=== PATIENT | female | born 2000 | race Caucasian/White ===

== ENCOUNTER 2018-02-21 20:11 | Emergency (ER) | payer OTHER ==
[2018-02-21 21:39] LABS: INFLUENZA A AMPLIFICATION POSITIVE (NEGATIVE); INFLUENZA B AMPLIFICATION NEGATIVE (NEGATIVE)
[2018-02-21] MEDS: OSELTAMIVIR PHOSPHATE 75 MG CAP (TAMIFLU) PO (21:59)
[2018-02-21] MEDS: ONDANSETRON 4 MG ORAL DISINTEGRATING TAB (Q0162 PER 1MG) PO (22:07)
== END 2018-02-21 22:17 | disposition home or self-care (01) ==
LOC: M ED 20:11
DX: J09.X2 Influenza due to identified novel influenza A virus with other respiratory manifestations (principal); F17.210 Nicotine dependence, cigarettes, uncomplicated
CPT/HCPCS: Q0162

== ENCOUNTER 2018-04-01 12:05 | Emergency (ER) | payer OTHER ==
[~2018-04-01] VITALS: Ht 160 cm; Wt 50.0 kg
[~2018-04-01 12:05] MED LIST: ACET1TAB55 PO; IBUP80TA PO; OSEL75CA PO
[2018-04-01] MEDS ORDERED: ONDANSETRON 4MG/2ML VIAL (J2405) IV ONE (13:45)
[2018-04-01] MEDS ORDERED: NS 1,000 ML IV ONE (13:45)
[2018-04-01] MEDS ORDERED: MECLIZINE 25 MG TABLET PO ONE (13:45)
[2018-04-01 14:32] LABS: BASO # 0.1 10^3/uL (0.0-0.2); BASO % 0.5 % (0.0-1.0); EOS # 0.1 10^3/uL (0.0-0.50); EOS % 1.3 % (0.0-3.0); HEMATOCRIT 43.5 % (36.0-47.0); HEMOGLOBIN 14.9 g/dl (12.0-15.5); LYMPH # 2.5 10^3/uL (1.5-6.5); LYMPH % 23.6 % (24.0-44.0); MEAN CORPUSCULAR HGB CONC 34.3 g/dl (32.0-36.5); MEAN CORPUSCULAR VOLUME 90.6 fl (80.0-96.0); MONO # 0.7 10^3/uL (0.0-0.8); MONO % 6.3 % (0.0-5.0); NEUTROPHILS # 7.1 10^3/uL (1.8-7.7); NEUTROPHILS % 67.9 % (36.0-66.0); PLATELET COUNT, AUTOMATED 297 10^3/uL (150-450); WHITE BLOOD COUNT 10.5 10^3/uL (4.0-10.0)
[2018-04-01 14:50] LABS: HCG, SERUM QUALITATIVE NEGATIVE (NEGATIVE)
[2018-04-01 15:16] LABS: ALT/SGPT 28 U/L (12-78); BILIRUBIN,TOTAL 0.6 MG/DL (0.2-1.0); BLOOD UREA NITROGEN 10 MG/DL (7-18); C REACTIVE PROTEIN QUANTITATIV < 0.30 MG/DL (0.00-0.30); CARBON DIOXIDE LEVEL 22 MEQ/L (21-32); CHLORIDE LEVEL 106 MEQ/L (98-107); CREATININE FOR GFR 0.56 MG/DL (0.55-1.30); FREE T4 1.18 NG/DL (0.78-1.33); GLUCOSE, FASTING 71 MG/DL (70-100); SODIUM LEVEL 138 MEQ/L (136-145); THYROID STIMULATING HORMONE 0.493 uIU/ML (0.463-3.98); TOTAL PROTEIN 8.1 GM/DL (6.4-8.2); TROPONIN I < 0.02 NG/ML (< 0.10)
[2018-04-01 15:30] LABS: BILIRUBIN,DIRECT 0.2 MG/DL (0.0-0.2); CPK CREATINE PHOSPHOKINASE 124 U/L (26-192); MB/CK RELATIVE INDEX 1.05 (< OR =4)
--- NOTE | 2018-04-01 15:44 | REP ---
Head CT without contrast: History: Syncope, vertigo, trauma. Injury in a fall. Comparison study: No comparison study. CT findings: Digital senior quality assurance specialist views demonstrate that the lingual and nasal jewelry. Bone window settings demonstrate an intact bony calvarium. There is no evidence of skull fracture or incidental bony calvarial lesion. The visualized paranasal sinuses appear clear. No intraorbital abnormality is seen. On soft tissue window setting images; the lateral, third, and fourth ventricles are normal in size and position. Zhu-white differentiation pattern is normal above and below the tentorium. There are is no evidence of intracranial hemorrhage. No mass, edema, infarction, or midline shift is seen. No extra-axial fluid collection is appreciated. Impression: Negative noncontrast head CT. Electronically Signed by Quang Mcbride MD 04/01/2018 03:36 P
--- NOTE | 2018-04-01 15:46 | REP ---
Maxillofacial CT study without contrast: History: Trauma. Syncope and vertigo. Findings: There is left nasal and lingual jewelry noted incidentally. No mandibular fracture is appreciated. The zygomatic arches are intact. No skull base fracture is appreciated. Orbital margins are intact. The maxillary, ethmoid, sphenoid and frontal sinuses are clear. Mastoid aeration is normal and symmetric. Middle ear cavities are normally aerated bilaterally. Internal auditory canals are unremarkable and symmetric. No intraorbital hematoma or mass lesion is seen. Impression: Negative maxillofacial CT study. Electronically Signed by Quang Mcbride MD 04/01/2018 03:37 P
[2018-04-01] MEDS ORDERED: MECL-68 PO (16:12)
[2018-04-01 16:22] VITALS: BP 102/55
--- NOTE | 2018-04-01 17:40 | ECGEPIP ---
Stationary ECG Study [facility] - ED Test Date: 2018-04-01 Pat Name: AWILDA CARR Department: Room: - Gender: F Vice President Of Product Marketing: [facility] 2000 Requested By: GREYSON PRITCHARD Order Number: [id number] Reading MD: Swati Henson Measurements Intervals [place] Rate: 71 P: 72 NM: 203 QRS: 53 QRSD: 82 T: 46 QT: 391 QTc: 425 Interpretive Statements SINUS RHYTHM NO PRIOR FOR COMPARISON Electronically Signed On 04-01-2018 17:39:39 EST by Swati Henson
== END 2018-04-01 16:28 | disposition home or self-care (01) ==
LOC: M ED 12:05
DX: R42 Dizziness and giddiness (principal); F17.210 Nicotine dependence, cigarettes, uncomplicated
CPT/HCPCS: 70450; 70486; 80048; 80076; 82550; 82553; 84439; 84443; 84484; 84703; 85025; 86140; 93005; 96361; 96374; 99284; J2405